=== PATIENT | female | born 1965 | race Caucasian/White ===

== ENCOUNTER 2017-02-03 13:22 | Outpatient (CLI) | payer OTHER ==
--- NOTE | 2017-02-03 16:15 | RAD ---
TWO VIEWS OF THE CHEST: Date: 02-03-17 Comparison: 09-02-13 History: Sarcoma of the uterus, pneumonia. FINDINGS: No pneumothorax or pleural fluid. No focal consolidation or alveolar edema. Heart and mediastinal co ntours are stable as are the osseous structures. IMPRESSION: No acute findings. POS: [facility]
== END 2017-02-03 13:23 | disposition home or self-care (01) ==
LOC: MADRAD 13:22
DX: R05 Cough (principal); C55 Malignant neoplasm of uterus, part unspecified
CPT/HCPCS: 71020

== ENCOUNTER 2018-01-18 13:55 | Emergency (ER) | payer BC, OTHER ==
[2018-01-18 14:44] LABS: Prothrombin Time 13.5 SEC (12.0-14.7)
[2018-01-18 14:47] LABS: Band 0 % (5-11); Eosinophils 0 % (0-10); Hemoglobin 8.8 g/dL (12.0-16.0); Hypochromia SLIGHT = 6-15 cells (100X) (0-5/hpf); Lymphocytes 2 % (21-51); MDiff Complete? YES; Mean Corpuscular HGB CONC 34.3 g/dL (32.0-36.0); Mean Corpuscular Hemoglobin 32.8 pg (27.0-31.0); Mean Corpuscular Volume 95.5 fl (81.0-99.0); Mean Platelet Volume 6.5 fL (7.4-10.4); Monocytes 1 % (0-10); Neutrophil 97 % (42-75); PLT Morphology Comment Appears Adequate; Platelet Count 198 thou/uL (130-400); White Blood Cell (WBC) Count 9.8 thou/uL (4.8-10.8)
[2018-01-18 14:55] LABS: ALT (SGPT) 8 U/L (8-55); AST (SGOT) 12 U/L (5-34); Albumin 3.5 g/dL (3.5-5.0); Alkaline Phosphatase 72 U/L (40-150); Anion Gap 13 mmol/L (10-20); BUN (Urea Nitrogen) 10 mg/dL (9.8-20.1); Bilirubin, Total 0.4 mg/dL (0.2-1.2); Calc. Creatinine Clearance 0 mL/min (70-130); Calcium 9.1 mg/dL (7.8-10.44); Carbon Dioxide 23 mmol/L (22-29); Chloride 102 mmol/L (98-107); Estimated GFR-MDRD 86; Globulin 3.4 g/dL (2.4-3.5); Glucose 91 mg/dL (70-105); Potassium 3.8 mmol/L (3.5-5.1); Protein, Total 6.9 g/dL (6.0-8.3); Sodium 134 mmol/L (136-145)
--- NOTE | 2018-01-18 15:52 | CT ---
HEAD CT WITHOUT CONTRAST: Date: 01/18/18 COMPARISON: None. HISTORY: Syncope. TECHNIQUE: Serial axial CT imaging at 5 mm intervals from vertex through skull base without contrast. Coronal an d sagittal reformatted imaging obtained. FINDINGS: There is no intracranial hemorrhage, midline shift, mass effect, or ventricular enlargement. Incidental note is made of a right-sided choroidal fissure cyst. Imaged paranasal sinuses and mastoid air cells are well aerated. There is no displaced calvarial frac ture. IMPRESSION: No acute findings. POS: [facility]
--- NOTE | 2018-01-18 16:03 | CT ---
CT CERVICAL SPINE: Date: 01/18/18 COMPARISON: None. HISTORY: Syncope, fall. TECHNIQUE: Serial axial CT imaging obtained at 2.5 mm intervals from the skull base through the lung apices with out contrast. Coronal and sagittal reformatted imaging obtained. FINDINGS: The imaged lung apices appear unremarkable. There is degenerative change at the atlantoaxial interspace. There is fusion of the facet joints and intervertebral disc at the C2-3 level. The occipital condyles, dens, and C1-2 articulation demonstrat e no acute findings. The craniocervical junction and cervicothoracic junction appear intact. There is mild anterolisthesis at C4-5 measuring 2.0 mm. At C5-6, there is disc space narrowing and mi ld posterior osteophyte formation. There is no prevertebral soft tissue swelling. No displaced fracture or evidence of dislocation is evident. 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 Cervical spine degenerative change. No acute fracture or evidenc e of dislocation is seen. POS: [facility]
== END 2018-01-18 15:30 | disposition home or self-care (01) ==
LOC: MADERS 13:55
DX: R55 Syncope and collapse (principal); Z79.899 Other long term (current) drug therapy; Z79.891 Long term (current) use of opiate analgesic; W01.10XA Fall on same level from slipping, tripping and stumbling with subsequent striking against unspecified object, initial encounter
CPT/HCPCS: 36415; 70450; 72125; 80053; 85025; 85610; 85730

== ENCOUNTER 2019-08-22 11:08 | Emergency (ER) | payer BC ==
[2019-08-22] MEDS ORDERED: Morphine 4 MG/ML VIAL ONE (12:40)
[2019-08-22] MEDS ORDERED: Clindamycin 150 MG CAP ONE (12:41)
[2019-08-22] MEDS ORDERED: Morphine 2 MG/ML SYRINGE ONE (12:41)
== END 2019-08-22 13:38 | disposition home or self-care (01) ==
LOC: MADERS 11:08
DX: K04.7 Periapical abscess without sinus (principal); L03.211 Cellulitis of face
CPT/HCPCS: 96372; 99283; J2270